=== PATIENT | male | born 1950 | race Caucasian/White ===

== ENCOUNTER 2019-09-28 10:08 | Day surgery (SDC) | payer OTHER ==
[2019-09-28] MEDS ORDERED: Depo-Medrol 40 MG/ML IM ONE (10:09)
[2019-09-28] MEDS ORDERED: Marcaine 0.5% SDV 10 ML IJ ONE (10:09)
[2019-09-28] MEDS ORDERED: DIPRIVAN 200 MG/20 ML IV ONE (11:28)
[2019-09-28] MEDS ORDERED: Ketamine HCl 50 MG/ML ONE (11:29)
--- NOTE | 2019-09-28 12:15 | XRAY ---
Indication: Right hip injection. Intraoperative fluoroscopy was provided for 17 seconds. Single digital spot image submitted for interpretation demonstrate needle tip immediately lateral to the right femur neck. Small amount of contrast injected for needle tip placement. Correlate with intraoperative findings/report.
--- NOTE | 2019-09-28 12:20 | XRAY ---
17 seconds fluoroscopy time in surgery for right intra-articular hip injection.
[2019-09-28] MEDS ORDERED: Lactated Ringers 1,000 ML IV ONE (15:55)
== END 2019-09-28 11:55 | disposition home or self-care (01) ==
LOC: SDC-PAIN 10:08
PROVIDERS: ATTEND Psychiatry & Neurology Pain Medicine
DX: M16.11 Unilateral primary osteoarthritis, right hip (principal); I10 Essential (primary) hypertension; J44.9 Chronic obstructive pulmonary disease, unspecified; E78.5 Hyperlipidemia, unspecified; R30.0 Dysuria; E55.9 Vitamin D deficiency, unspecified; K72.90 Hepatic failure, unspecified without coma; F20.9 Schizophrenia, unspecified; B19.20 Unspecified viral hepatitis C without hepatic coma; K21.9 Gastro-esophageal reflux disease without esophagitis; K44.9 Diaphragmatic hernia without obstruction or gangrene; Z86.73 Personal history of transient ischemic attack (TIA), and cerebral infarction without residual deficits; Z79.899 Other long term (current) drug therapy
CPT/HCPCS: 20610; 73501; 77002; J1030; J2704; Q9966